=== PATIENT | female | born 1960 | race Caucasian/White ===

== ENCOUNTER → 2018-08-16 12:31 | Outpatient (CLI) | payer OTHER | END | disposition home or self-care (01) | LOC: D.LABREF 12:31 | PROVIDERS: ATTEND Orthopaedic Surgery | DX: M17.11 Unilateral primary osteoarthritis, right knee (principal) ==

== ENCOUNTER 2018-08-23 16:43 | Inpatient (IN) | payer OTHER ==
[~2018-08-23] VITALS: Ht 167.6 cm; Wt 77.3 kg
[2018-09-19] MEDS ORDERED: SYNTHROID125 MCG PO (14:48)
[2018-09-19] MEDS ORDERED: FISH OIL 1,0001 CA1 PO (14:48)
[2018-09-19] MEDS ORDERED: VITAMIN D250000 UNIT PO (14:49)
[2018-09-20 11:28] LABS: BASOPHILS 0.4 % (0-2); EOSINOPHILS 3.2 % (0-7); HEMOGLOBIN 14.1 g/dL (12-16); IMMATURE GRANULOCYTES 0.2 % (0-5); LYMPHOCYTES 26.9 % (15-50); MCH 30.7 pg (26.0-34.0); MCHC 33.6 g/dL (31.0-37.0); MCV 91.5 fL (80.0-100.0); MEAN PLATELET VOLUME 10.5 fL (7.4-10.4); MONOCYTES 9.5 % (2-11); NEUTROPHILS 59.8 % (40-80); PLATELET COUNT 203 10x3/uL (130-400); RBC 4.59 10x6/uL (4.00-5.40); RDW 12.8 % (11.5-14.5); WBC 5.4 10x3/uL (4.8-10.8)
[2018-09-20 11:37] LABS: APTT 26.7 SECONDS (22.8-39.4)
[2018-09-20 11:38] LABS: INR 0.98 (0.85-1.17); PROTIME 12.5 SECONDS (11.6-15.0)
[2018-09-20 11:40] LABS: CALC OSMOLALITY 283 mosm/kg (275-300); CALCIUM 9.6 mg/dL (8.5-10.1); CHLORIDE - SERUM 105 mmol/L (98-107); CREATININE - SERUM 0.7 mg/dL (0.6-1.3); GLUCOSE 105 mg/dL (74-106); POTASSIUM - SERUM 4.1 mmol/L (3.5-5.1); SODIUM 142 mmol/L (136-145); UREA NITROGEN 16 mg/dL (7-18); eGFR NON AFRICAN AMERICAN > 90 mL/min (90-120)
[2018-09-20 12:01] LABS: APPEARANCE CLEAR (CLEAR); BACTERIA FEW /hpf (NONE SEEN); BILIRUBIN NEGATIVE (NEGATIVE); COLOR YELLOW (YELLOW); EPITHELIAL CELLS OCC /hpf (0-5); GLUCOSE NEGATIVE (NEGATIVE); KETONE NEGATIVE (NEGATIVE); NITRITE NEGATIVE (NEGATIVE); PROTEIN NEGATIVE (NEGATIVE); SPECIFIC GRAVITY 1.005 (1.005-1.020); UROBILINOGEN NORMAL (NORMAL); WHITE CELLS - URINE 0-5 /hpf (0-5)
[2018-09-26 08:20] VITALS: BMI 27.5
--- NOTE | 2018-09-26 12:19 | NUR ---
PLASMA BLADE SET TO 6/8 BOVIE PAD RIGHT FLANK [id number] EXP 02/20/2020
[2018-09-26 14:56] VITALS: BP 131/79
--- NOTE | 2018-09-26 15:00 | NUR ---
PT TO ROOM 2214 FROM PACU VIA BED. PT IS WITHOUT DISTRESS. DRESSING RIGHT KNEE CLEAN,DRY AND INTACT.NARCISO AND MICHAEL WRAP TO RLE. SCD ON RLE.PT AWAKENS INT. MONITOR FOR NEEDS
[2018-09-26 15:04] VITALS: BP 131/79; Ht 167.6 cm; Wt 77.3 kg
[2018-09-26 17:11] VITALS: BP 123/69
--- NOTE | 2018-09-26 18:36 | OP ---
PATIENT NAME: JASVIR WINSLOW MEDICAL RECORD: [id number] :58 LOCATION:[id number] ADMISSION DATE:09/26/18 SURGEON: WILL VARGAS DO DATE OF OPERATION: 09/26/2018 PROCEDURE PERFORMED: Right total knee arthroplasty. PREOPERATIVE DIAGNOSIS: Right knee osteoarthritis with valgus deformity. POSTOPERATIVE DIAGNOSIS: Right knee osteoarthritis with valgus deformity. INDICATIONS: Ms. Winslow is a 58-year-old female who has had several rounds of injections in her right knee to no avail as well as other conservative management measures and she is tired of dealing with the pain and affecting activities of daily living. She was informed of the risks including infection, bleeding, damage to nerves and vessels, need for further surgery, fracture, and continued pain and she consented to the procedure. SURGEON: Will Vargas DO DRAWER UPFITTER: Kam Cloud, advanced nurse practitioner. He assisted with retraction. DESCRIPTION OF PROCEDURE: The patient was not given a block by anesthesia in the preoperative area. She was taken to the operative suite, laid in supine position, given general anesthetic. She was given a gram of Ancef and 80 mg gentamicin. The right lower extremity was prepped and draped in sterile fashion. Timeout was performed, everyone was in agreement of the correct side, site, patient and procedure. Once that was done, the incision was marked out over the anterior knee and covered with Ioban. The incision was incised with a #10 blade scalpel down to the capsule and then the capsule with a fresh 10 blade was used to the medial parapatellar approach. The partial fat pad removal was then done and osteophytes were taken off the patella. The patella was then milled down to fit a 6.2 mm prosthesis. Femur was then exposed and a drill was used to enter the intramedullary canal. The knee was then cut at 4 degrees of valgus due to the previous valgus deformity and then the tibia was exposed and cut off the lateral side, 2 mm. Due to the valgus deformity it was more on the lateral side. This was removed and a lamina spreader box operator was used and menisci were removed from the medial and lateral sides of the knee. Bone was removed at that time. Osteophytes were then removed of the medial and lateral femur as well as in the posterior femur. After the knee was flexed up and sized to be a 62.5, a 4-in-1 cutting block was put on and the 4 cuts were made and then the osteophytes were removed as described. Once that was removed, the trial was put on and then the tibial tray was floated in and ranged and marked for rotation. The lug holes were then drilled on the femur and for the patella as well. The tibia was prepped. A 67 tibia was punched and drilled and then cement was mixed. Cement was put on the tibia and on the implant and impacted into place. Excess cement was removed. The femur was impacted into place and the poly was put in between them, trial poly, and the knee was brought to extension. The patella was then put on as well as cement in the holes and on the prosthesis, it was squeezed and held in place until cement dried, excess cement was removed at that time. The knee was thoroughly irrigated at that time and a 12 trial was used on the poly and this fit very well. It had good medial and lateral stability in extension and flexion. A 12 deep dish poly was put in and then locked into place with locking mechanism. The knee was then irrigated one more OPERATIVE REPORT [id number] JASVIR WINSLOW and then Surgicel powder and vancomycin and tobramycin powder were put in the knee. The capsule was closed with #2 Ethibond in a odgomd-ey-hifqn fashion and then the skin was closed with 2-0 Vicryl in inverted interrupted fashion. ZipLine placed on the knee. Adaptic, 4 x 4s, ABD, Webril, and Shawn wrap was then placed on the knee. NARCISO hose stockinette was placed up to the knee. The patient was then awakened and taken to recovery in stable condition. Blood loss was approximately 200 mL. COMPLICATIONS: None. TRANSINT:[id number] Voice Confirmation ID: [id number] DOCUMENT ID: [id number] WILL VARGAS DO at 1836 CC: [id number] DICTATION DATE: 09/26/18 1341 PORCELAIN ENAMEL REPAIRER: 09/26/18 1457 ADM IN [place] [id number] [place] [address]
--- NOTE | 2018-09-26 20:00 | NUR ---
ASSESSMENT PER FLOWSHEET. DRESG TO RT KNEE C/D/I W/LEG IN CPM MACHINE. SR UP X2 CALL LIGHT WITHIN REACH. IV PATENT LT HAND OF NS AT 50CC'S/HR SITE CLEAR.
[2018-09-26 21:28] VITALS: BP 120/71
--- NOTE | 2018-09-26 21:45 | NUR ---
CPM REMOVED. ICE BAG REFILLED AND APPLIED TO RT KNEE. MEDS GIVEN PER JUN.
--- NOTE | 2018-09-26 23:36 | NUR ---
REQUESTING PAIN MEDS RATES PAIN LEVEL #5-6. OXY IR 10 MG PO GIVEN FOR PAIN COPNTROL.
--- NOTE | 2018-09-27 | NUR ---
VOIDS ON BEDPAN. SR UP X2 CALL LIGHT WITHIN REACH.
--- NOTE | 2018-09-27 01:30 | NUR ---
REQESTING THE ATARAX. ATARAX 50MG PO GIVEN FOR PT'S REQUEST.
[2018-09-27 02:13] VITALS: BP 128/74
--- NOTE | 2018-09-27 03:41 | NUR ---
EYES CLOSED RESPIRATIONS WITH EASE AND UNLABORED. IV OF 1/2NS INFUSING TO LEFT HAND AT 50CC'S/HR.
[2018-09-27 04:50] VITALS: BP 117/67
[2018-09-27 05:31] LABS: HEMATOCRIT 35.9 % (36.0-48.0); HEMOGLOBIN 11.8 g/dL (12-16); MCH 30.3 pg (26.0-34.0); MCHC 32.9 g/dL (31.0-37.0); MCV 92.1 fL (80.0-100.0); MEAN PLATELET VOLUME 10.5 fL (7.4-10.4); RBC 3.9 10x6/uL (4.00-5.40); RDW 12.6 % (11.5-14.5); WBC 10.8 10x3/uL (4.8-10.8)
--- NOTE | 2018-09-27 07:15 | NUR ---
PT RESTING IN BED, EYES CLOSED. RESPIRATIONS EVEN AND UNLABORED. AROUSES TO VOICE. NO C/O PAIN. NO S/S OF ACUTE DISTRESS NOTED. CPM ON AT THIS TIME. IV TO LEFT HAND, 1/2 NS INFUSING @ 50ML/HR. SITE PATENT WITHOUT REDNESS OR SWELLING. MICHAEL WRAP TO RIGHT KNEE, POD# 1. PT DENIES ANYTHING FURTHER AT THIS TIME. CALL LIGHT IN REACH. WILL CONTINUE TO MONITOR.
[2018-09-27 08:54] VITALS: BP 129/71
[2018-09-27 10:15] LABS: APPEARANCE SL CLDY (CLEAR); COLOR YELLOW (YELLOW)
[2018-09-27 10:16] LABS: BACTERIA FEW /hpf (NONE SEEN); BILIRUBIN NEGATIVE (NEGATIVE); EPITHELIAL CELLS RARE /hpf (0-5); GLUCOSE NEGATIVE (NEGATIVE); KETONE NEGATIVE (NEGATIVE); NITRITE NEGATIVE (NEGATIVE); PROTEIN NEGATIVE (NEGATIVE); RED CELLS - URINE NONE SEEN /hpf (0-5); UROBILINOGEN NORMAL (NORMAL); WHITE CELLS - URINE RARE /hpf (0-5)
[2018-09-27 10:17] LABS: AMORPHOUS SEDIMENT <1+ /lpf (NONE SEEN); MUCUS <1+ /lpf (NONE SEEN); TALC POWDER CRYSTALS 0-5 /hpf (NONE SEEN)
[2018-09-27 12:43] VITALS: BP 109/59
[2018-09-27 17:05] VITALS: BP 113/61
--- NOTE | 2018-09-27 20:15 | NUR ---
LYING IN BED TALKING TO VISITORS. CPM ON RT KNEE AT THIS TIME. RATES PAIN 6 IN RT KNEE. STATES SHE WILL TAKE A PAIN PILL WITH NIGHT TIME MEDS. SCD NOTED TO LLE. NARCISO HOSE TO RLE AND PLEXIBOOT TO RLE. PEDAL PULSES WNL. RESP EVEN AND NONLABORED. NO DISTRESS. 1/2 NS @ 50 ML/HR INFUSING IN LT HAND WITHOUT DIFF. DRSG WITH MICHAEL WRAP TO RT KNEE IS C/D/I. SR ELEVATED X2. CL IN REACH.
--- NOTE | 2018-09-27 20:53 | NUR ---
MEDICATED WITH OXY IR FOR C/O PAIN IN RT KNEE. ALSO MEDICATED WITH TYLENOL FOR ELEVATED TEMP. CL IN REACH.
[2018-09-27 21:27] VITALS: BP 118/55
--- NOTE | 2018-09-28 04:52 | NUR ---
MEDICATED FOR C/O PAIN IN RT KNEE RATING 3 WITH OXY IR 5MG. CL IN REACH.
[2018-09-28 05:09] LABS: BASOPHILS 0.3 % (0-2); EOSINOPHILS 0.7 % (0-7); HEMATOCRIT 34.3 % (36.0-48.0); HEMOGLOBIN 11.3 g/dL (12-16); IMMATURE GRANULOCYTES 0.2 % (0-5); LYMPHOCYTES 14.1 % (15-50); MCH 30.4 pg (26.0-34.0); MCHC 32.9 g/dL (31.0-37.0); MCV 92.2 fL (80.0-100.0); MEAN PLATELET VOLUME 10.6 fL (7.4-10.4); MONOCYTES 11.5 % (2-11); NEUTROPHILS 73.2 % (40-80); PLATELET COUNT 169 10x3/uL (130-400); RBC 3.72 10x6/uL (4.00-5.40); RDW 13.1 % (11.5-14.5); WBC 8.6 10x3/uL (4.8-10.8)
[2018-09-28 05:24] LABS: CALC OSMOLALITY 277 mosm/kg (275-300); CALCIUM 8.4 mg/dL (8.5-10.1); CARBON DIOXIDE 31.2 mmol/L (21.0-32.0); CHLORIDE - SERUM 102 mmol/L (98-107); CREATININE - SERUM 0.6 mg/dL (0.6-1.3); GLUCOSE 106 mg/dL (74-106); POTASSIUM - SERUM 3.6 mmol/L (3.5-5.1); SODIUM 140 mmol/L (136-145); UREA NITROGEN 10 mg/dL (7-18); eGFR NON AFRICAN AMERICAN > 90 mL/min (90-120)
--- NOTE | 2018-09-28 05:52 | NUR ---
CPM ON AT THIS TIME.
[2018-09-28 06:17] VITALS: BP 96/57
--- NOTE | 2018-09-28 07:15 | NUR ---
PT RESTING IN BED, EYES OPEN. NO C/O PAIN. NO S/S OF ACUTE DISTRESS NOTED. PT ALERT AND ORIENTED. PT DENIES ANYTHING FURTHER AT THIS TIME. CALL LIGHT IN REACH. WILL CONTINUE TO MONITOR.
[2018-09-28 10:08] VITALS: BP 108/59
[2018-09-28 13:03] VITALS: BP 121/74
--- NOTE | 2018-09-28 13:56 | NUR ---
I have reviewed this patient and I concur with the Shift Assessment completed by the Licensed Practical Nurse today this shift.
--- NOTE | 2018-09-28 18:39 | MORECARE ---
CASE MANAGEMENT DISCHARGE SUMMARY PATIENT: JASVIR WINSLOW UNIT: [id number] ADM DATE: 09/26/18 AGE: 58 : 58 SEX: F ROOM/BED: D.2214 AUTHOR: ONEYDA MONTES DE OCA PHYSICIAN: REFERRING PHYSICIAN: RAJEEV VARGAS DO DATE OF SERVICE: 09/28/18 Discharge Plan Patient Name: JASVIR WINSLOW Facility: [facility]:[place] : 1960 Planned Disposition: Home Anticipated Discharge Date: 09/29/18 Discharge Date: Expected LOS: 3 Initial Reviewer: [email or web address] Initial Review Date: 09/26/2018 Generated: 09/28/18 7:38 pm Patient Name: JASVIR WINSLOW Page [phone] at 1839 All edits/amendments must be made on the electronic document DICTATION DATE: 09/28/181837 CONTINUOUS PICKLING LINE PICKLER: JESSIE 09/28/181837 RPT#: [id number] DC DATE: STATUS: ADM IN [facility] [address] [place] [address] END OF REPORT
--- NOTE | 2018-09-28 18:45 | MORECARE ---
CASE MANAGEMENT DISCHARGE SUMMARY PATIENT: JASVIR WINSLOW UNIT: [id number] ADM DATE: 09/26/18 AGE: 58 : 58 SEX: F ROOM/BED: D.2214 AUTHOR: ONEYDA MONTES DE OCA PHYSICIAN: REFERRING PHYSICIAN: RAJEEV VARGAS DO DATE OF SERVICE: 09/28/18 Discharge Plan Patient Name: JASVIR WINSLOW Facility: [facility]:[place] : 1960 Planned Disposition: Home Anticipated Discharge Date: 09/29/18 Discharge Date: Expected LOS: 3 Initial Reviewer: [email or web address] Initial Review Date: 09/26/2018 Generated: 09/28/18 7:45 pm Comments DCP- Discharge Planning Updated by [email or web address]: Nancy Wilkins on 09/28/18 5:[address] LATE [id number] CM TO BEDSIDE TO ASSESS PATIENT NEEDS AND DISCHARGE PLANNING. HER , BETSY, WAS AT THE BEDSIDE. SHE GAVE PERMISSION TO PROCEED W ASSESSMENT W/ HIM BEIN PRESENT. THE PATIENT IS ANTICIPATING DISCHARGE TOMORROW. SHE HAS MADE ARRANGEMENTS W/ [facility] OUTPATIENT PHYSICAL THERAPY. CM WILL FAX CLINICAL. SHE HAD AN APPT AT 1230 TOMORROW. SHE CALLED AND THEY WILL RESCHEDULE HER. SHE DID NOT APPEAR TO FEEL WELL. SHE IS VERY NAUSEOUS Last DP export: 09/28/18 5:39 pm Patient Name: JASVIR WINSLOW Page [phone] at 1845 All edits/amendments must be made on the electronic document DICTATION DATE: 09/28/181844 CARTOGRAPHIC TECHNICIAN: JESSIE 09/28/181844 RPT#: [id number] DC DATE: STATUS: ADM IN [facility] [address] [place] [address] END OF REPORT
--- NOTE | 2018-09-28 18:45 | NUR ---
PT LAYING IN BED, CPM MACHINE ON. NO C/O PAIN. NO S/S OF DISTRESS NOTED. PT DENIES ANYTHING FURTHER AT THIS TIME. WILL CONTINUE TO MONITOR.
--- NOTE | 2018-09-28 18:59 | MORECARE ---
CASE MANAGEMENT DISCHARGE SUMMARY PATIENT: JASVIR WINSLOW UNIT: [id number] ADM DATE: 09/26/18 AGE: 58 : 58 SEX: F ROOM/BED: D.2214 AUTHOR: ONEYDA MONTES DE OCA PHYSICIAN: REFERRING PHYSICIAN: RAJEEV VARGAS DO DATE OF SERVICE: 09/28/18 Discharge Plan Patient Name: JASVIR WINSLOW Facility: [facility]:[place] : 1960 Planned Disposition: Home Anticipated Discharge Date: 09/29/18 Discharge Date: Expected LOS: 3 Initial Reviewer: [email or web address] Initial Review Date: 09/26/2018 Generated: 09/28/18 7:59 pm Comments DCP- Discharge Planning Updated by [email or web address]: Nancy Wilkins on 09/28/18 5:[address] LATE [id number] CM TO BEDSIDE TO ASSESS PATIENT NEEDS AND DISCHARGE PLANNING. HER , BETSY, WAS AT THE BEDSIDE. SHE GAVE PERMISSION TO PROCEED W ASSESSMENT W/ HIM BEIN PRESENT. THE PATIENT IS ANTICIPATING DISCHARGE TOMORROW. SHE HAS MADE ARRANGEMENTS W/ [facility]. CM WILL FAX CLINICAL. SHE HAD AN APPT AT 1230 TOMORROW. SHE CALLED AND THEY WILL RESCHEDULE HER. SHE DID NOT APPEAR TO FEEL WELL. SHE IS VERY NAUSEOUS CM WILL COMPLETE ASSESSMENT IN THE AM. PCP- [facility] ON [facility] DME- PATIENT HAS A WALKER AT HOME. CM WILL F/U IN THE AM. Last DP export: 09/28/18 5:45 pm Patient Name: JASVIR WINSLOW Page [phone] at 1859 All edits/amendments must be made on the electronic document DICTATION DATE: 09/28/181857 CHARACTER IMPERSONATOR: JESSIE 09/28/181857 RPT#: [id number] DC DATE: STATUS: ADM IN [facility] [address] [place] [address] END OF REPORT
--- NOTE | 2018-09-28 19:35 | NUR ---
LYING IN BED. CPM ON AT THIS TIME. DENIES PAIN. RESP EVEN AND NONLABORED. SCD NOTED TO LLE. NARCISO NOTED TO RLE AND PLEXI NOTED TO RLE. PEDAL PULSES WNL. DRSG TO RT KNEE WITH MICHAEL WRAP IS C/D/I. 1/2 NS @ 50 ML/HR INFUSING IN LT HAND WITHOUT DIFF. ALERT AND ORIENTED. DENIES NEEDS. VISITOR AT BEDSIDE. SR ELEVATED X2. CL IN REACH.
[2018-09-28 21:16] VITALS: BP 106/55
--- NOTE | 2018-09-28 21:30 | NUR ---
PT TAKEN OFF OF CPM. DENIES NEED FOR PAIN MED. CL IN REACH.
[2018-09-29 00:26] VITALS: BP 124/50
[2018-09-29 05:10] LABS: BASOPHILS 0.3 % (0-2); EOSINOPHILS 0.7 % (0-7); HEMOGLOBIN 11.2 g/dL (12-16); IMMATURE GRANULOCYTES 0.2 % (0-5); LYMPHOCYTES 13.8 % (15-50); MCH 30.2 pg (26.0-34.0); MCHC 32.9 g/dL (31.0-37.0); MCV 91.6 fL (80.0-100.0); MEAN PLATELET VOLUME 10.4 fL (7.4-10.4); MONOCYTES 10.4 % (2-11); NEUTROPHILS 74.6 % (40-80); PLATELET COUNT 184 10x3/uL (130-400); RBC 3.71 10x6/uL (4.00-5.40); WBC 10.5 10x3/uL (4.8-10.8)
[2018-09-29 05:12] VITALS: BP 121/73
[2018-09-29 05:15] LABS: CALC OSMOLALITY 274 mosm/kg (275-300); CALCIUM 8.6 mg/dL (8.5-10.1); CARBON DIOXIDE 26.8 mmol/L (21.0-32.0); CHLORIDE - SERUM 101 mmol/L (98-107); CREATININE - SERUM 0.7 mg/dL (0.6-1.3); GLUCOSE 113 mg/dL (74-106); POTASSIUM - SERUM 3.5 mmol/L (3.5-5.1); SODIUM 138 mmol/L (136-145); eGFR NON AFRICAN AMERICAN > 90 mL/min (90-120)
[2018-09-29 05:16] LABS: UREA NITROGEN 7 mg/dL (7-18)
[2018-09-29 08:58] VITALS: BP 113/70
--- NOTE | 2018-09-29 09:00 | NUR ---
ALERT AND ORIENTED X4. TYLENOL GIVEN FOR TEMP 100.3 AND EFFECTIVE. DRESSING CHANGED TO RT. KNEE WITH AREA CLEAN AND DRY W/O ANY S/S OF INFECTION NOTED. DENEIS ANY PAIN OR DISCOMFORT. ENCOURAGED TO USE CALL LIGHT FOR ASSIST
[2018-09-29 13:05] VITALS: BP 113/69
[2018-09-29] MEDS ORDERED: OXYCODONE HCL5 M1 PO (14:31)
[2018-09-29] MEDS ORDERED: VISTARIL50 MG PO (14:31)
[2018-09-29] MEDS ORDERED: BAYER CHEWABLE81 MG PO (14:32)
[2018-09-29] MEDS ORDERED: SULFAMETHOXAZOL1 TA3 PO (14:32)
--- NOTE | 2018-09-29 17:50 | NUR ---
IV DISCONTINUED AND VERBALIZED UNDERSTANDING OF DISCHARGE INSTRUCTIONS. DENIES ANY PAIN OR DISCOMFORT PROR TO DISCHARGE. LEAVING POV WITH ASSSIT OF FAMILY. STABLE AT TIME OF DEPARTURE
--- NOTE | 2018-09-29 19:33 | MORECARE ---
CASE MANAGEMENT DISCHARGE SUMMARY PATIENT: JASVIR WINSLOW UNIT: [id number] ADM DATE: 09/26/18 AGE: 58 : 58 SEX: F ROOM/BED: D.2214 AUTHOR: TAVON,DOC PHYSICIAN: REFERRING PHYSICIAN: RAJEEV VARGAS DO DATE OF SERVICE: 09/29/18 Discharge Plan Patient Name: JASVIR WINSLOW Facility: [facility]:[place] : 1960 Planned Disposition: Home Anticipated Discharge Date: 09/29/18 Discharge Date: 09/29/2018 Expected LOS: 3 Initial Reviewer: [email or web address] Initial Review Date: 09/26/2018 Generated: 09/29/18 8:33 pm Comments DCP- Discharge Planning Updated by [email or web address]: Nancy Wilkins on 09/29/18 5:[address] Message left from [facility] regarding DCP letter. Telephone call was garbled and the quality of message was poor, Broken and muffled message left. CM called [phone] for ext [phone]. Rec message that the service I am requesting is unavailable from my calling area. Was not able to even enter an extension. patient has dme. She had arranged the physical therapy with [facility]. DCP- Discharge Planning Updated by [email or web address]: Nancy Wilkins on 09/28/18 5:[address] LATE [id number] CM TO BEDSIDE TO ASSESS PATIENT NEEDS AND DISCHARGE PLANNING. HER , BETSY, WAS AT THE BEDSIDE. SHE GAVE PERMISSION TO PROCEED W ASSESSMENT W/ HIM BEIN PRESENT. THE PATIENT IS ANTICIPATING DISCHARGE TOMORROW. SHE HAS MADE ARRANGEMENTS W/ [facility]ICAL [facility]. CM WILL FAX CLINICAL. SHE HAD AN APPT AT 1230 TOMORROW. SHE CALLED AND THEY WILL RESCHEDULE HER. SHE DID NOT APPEAR TO FEEL WELL. SHE IS VERY NAUSEOUS CM WILL COMPLETE ASSESSMENT IN THE AM. PCP- [facility] ON [facility] IN [place] DME- PATIENT HAS A WALKER AT HOME. CM WILL F/U IN THE AM. Last DP export: 09/28/18 5:59 pm Patient Name: JASVIR WINSLOW Page [phone] at 1933 All edits/amendments must be made on the electronic document DICTATION DATE: 09/29/181932 COMMERCIAL REAL ESTATE ASSISTANT: JESSIE 09/29/181932 RPT#: [id number] DC DATE:09/29/18 STATUS: DIS IN [facility] [address] [place] [address] END OF REPORT
== END 2018-09-29 17:50 | disposition home or self-care (01) | DRG 470 ==
LOC: D.SDCHOLD 09-20 10:00 → D.MS 09-26 07:20 → D.SDCHOLD 09-26 08:30 → D.MS 09-26 13:54
PROVIDERS: Internal Medicine Nephrology; ADMIT Orthopaedic Surgery; ATTEND Orthopaedic Surgery
PROC: 0SRC0J9 Replacement of Right Knee Joint with Synthetic Substitute, Cemented, Open Approach (ICD-10-PCS; principal; 2018-09-26 09:30)
DX: M17.11 Unilateral primary osteoarthritis, right knee (principal); D62 Acute posthemorrhagic anemia; N39.0 Urinary tract infection, site not specified; E03.9 Hypothyroidism, unspecified; K21.9 Gastro-esophageal reflux disease without esophagitis